=== PATIENT | male | born 1945 | race Caucasian/White ===

== ENCOUNTER 2017-01-03 08:30 | Outpatient (CLI) | payer OTHER ==
--- NOTE | 2017-01-03 10:23 | DIAGNOSTIC IMAGING REPORT ---
PROCEDURE: US ABDOMEN VASCULAR-AAA INDICATION: AORTIC ANEURYSM TECHNIQUE: Weller scale, color Doppler and spectral ultrasound of the abdominal aorta. COMPARISON: Abdominal ultrasound 11/28/2006 FINDINGS: Mild to moderate atherosclerosis. Abdominal aortic maximal diameter: Proximal 3.3 cm, mid 2.1 cm and distal 2.2 cm. Right iliac artery measures 1.2 cm the left iliac of 1.4 cm. IMPRESSION: 1. No evidence of an abdominal aortic aneurysm.
--- NOTE | 2017-01-03 23:31 | DIAGNOSTIC IMAGING REPORT ---
REFERRING PHYSICIAN/PROVIDER: Dr. [email or web address] CONSULTING BUSINESS INVESTOR: Juan Tillman MD PROCEDURE: 2D echo, M-mode and complete color and flow Doppler interrogation TECHNICAL QUALITY: Good INDICATION: NEW CARDIAC MURMMER INTERPRETATIONS: CHAMBERS: LEFT ATRIUM: Normal left atrial size. LEFT VENTRICLE: Concentric left ventricular hypertrophy. Normal LV size and systolic function, EF 64%. No wall motion abnormalities. Grade I diastolic dysfunction. RIGHT ATRIUM: Normal right atrial size. RIGHT VENTRICLE: Normal right ventricular size and systolic function. VALVES: All valves nonrheumatic unless otherwise indicated. AORTIC VALVE: Trileaflet aortic valve with aortic sclerosis. No aortic stenosis. No aortic regurgitation. MITRAL VALVE: Trace mitral regurgitation. No mitral stenosis. TRICUSPID VALVE: Trace tricuspid regurgitation. Unable to estimate pulmonary artery systolic pressure due to inadequate tricuspid regurgitation jet. PULMONIC VALVE: Trace pulmonic regurgitation. MISCELLANEOUS: No pericardial effusion. HEMODYNAMICS: IVC is not seen well. IMPRESSION: 1. Concentric left ventricular hypertrophy with normal size and systolic function, EF 64%. No wall motion abnormalities. 2. Impaired relaxation consistent with grade I diastolic dysfunction. 3. Aortic sclerosis without stenosis. 4. Normal right ventricular size and systolic function. 5. Unable to estimate pulmonary artery systolic pressure due to inadequate tricuspid regurgitation jet.
== END 2017-01-03 23:00 ==
LOC: US SRH 08:30
DX: I70.0 Atherosclerosis of aorta (principal)